=== PATIENT | female | born 1955 | race Caucasian/White ===

== ENCOUNTER 2019-06-21 13:56 | Inpatient (IN) | payer OTHER ==
[2019-06-21 14:31] LABS: #Basophils 0.1 thou/uL (0.0-0.2); #Eosinphils 0.2 thou/uL (0.0-0.7); #Lymphocytes 3.7 thou/uL (1.20-3.40); #Monocytes 1.3 thou/uL (0.11-0.59); #Neutrophils 6.5 thou/uL (1.40-6.50); %Basophils 0.7 % (0.0-1.0); %Eosinophils 1.4 % (0.0-10.0); %Lymphocytes 31.7 % (21.0-51.0); %Monocytes 10.9 % (0.0-10.0); %Neutrophils 55.3 % (42.0-75.0); Hemoglobin 14.5 g/dL (12.0-16.0); Mean Corpuscular HGB CONC 32.6 g/dL (32.0-36.0); Mean Corpuscular Hemoglobin 30.7 pg (27.0-31.0); Mean Corpuscular Volume 94.2 fL (78.0-98.0); Mean Platelet Volume 8.4 fL (7.4-10.4); Platelet Count 339 thou/uL (130-400); RBC Distribution Width 11.5 % (11.5-14.5); Red Blood Cell (RBC) Count 4.73 mill/uL (4.20-5.40); White Blood Cell (WBC) Count 11.7 thou/uL (4.8-10.8)
[2019-06-21] MEDS ORDERED: Iopamidol-370 76% 500 ML 1 ML ONE (14:47)
[2019-06-21 14:52] LABS: ALT (SGPT) 15 U/L (8-55); AST (SGOT) 22 U/L (5-34); Albumin 4.3 g/dL (3.4-4.8); Alkaline Phosphatase 55 U/L (40-110); Anion Gap 13 mmol/L (10-20); BUN (Urea Nitrogen) 14 mg/dL (9.8-20.1); Bilirubin, Total 0.4 mg/dL (0.2-1.2); CK (CPK) 116 U/L (29-168); Calc. Creatinine Clearance 0 mL/min (70-130); Calcium 9.6 mg/dL (7.8-10.44); Carbon Dioxide 24 mmol/L (23-31); Chloride 109 mmol/L (98-107); Estimated GFR-MDRD 48; Globulin 2.7 g/dL (2.4-3.5); Glucose 100 mg/dL (80-115); Potassium 4.2 mmol/L (3.5-5.1); Sodium 142 mmol/L (136-145)
[2019-06-21 15:15] LABS: CKMB 4.9 ng/mL (0-6.6)
--- NOTE | 2019-06-21 16:17 | CT ---
CT ANGIOGRAM THORAX WITH IV CONTRAST AND 3-D RECONSTRUCTIONS CLINICAL INDICATION: Dyspnea worse when ambulating. Symptoms have gotten worse. COMPARISON: None FINDINGS: Pulmonary arteries: Multiple filling defects are seen within upper lobe and bilateral lobe segmental and subsegmental pulmonary arteries with filling defects in the more distal right and left pulmonary arteries. More extensive filling defects are seen in right upper and right lower lobe pulmo nary arteries. Findings are consistent with bilateral pulmonary emboli. Aorta: Vascular calcifications are seen in the thoracic aorta with mild atherosclerotic plaque. No ao rtic dissection or aneurysmal dilatation is seen. Lungs: Small approximately 4 mm nodular density is seen adjacent to the minor fissure as well as a mo re subtle nodular density along the major fissure which may represent small intrapleural lymph nodes. Tiny 3 mm subpleural pulmonary nodule is seen at the right lung base. No consolidation or pleu ral effusion is seen bilaterally. Mild atelectasis is present in the lingula. Mediastinum: No enlarged lymph nodes are seen by CT size criteria. Vascular calcifications are seen i n the coronary arteries. Thyroid gland: Incompletely imaged on this exam, but where seen has a grossly normal CT appearance. Osseous structures: Degenerative changes are seen in the spine. Chest wall: No abnormality is visualized. Upper abdomen: Vascular calcifications and atherosclerotic plaque is seen in the proximal abdominal a karlos. The remainder of the limited visualized upper abdomen demonstrates a normal CT appearance for phase of imaging. IMPRESSION: 1. Extensive bilateral pulmonary emboli. 2. Above findings discussed with Dr. Aguilar in the emergency department on 06/21/2019 at 1612 hours.
--- NOTE | 2019-06-21 16:33 | PDOC.FPRHP ---
- History of Present Illness Chief Complaint: Shortness of breath History of Present Illness: Ms. Lanier is a 64yo white female who presents to the ED for increasing shortness of breath. It started acutely Tuesday, and progressively worsened. She decided to come in today before the weekend because the shortness of breath continued to worsen. Denies leg pain or swelling. 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 She recently traveled back from [place] on 05/29/19, her flight was about 9 hours. She has no history of blood clots or bleeding disorders, no family history of bleeding disorders. ED Course: Lovenox 120mg, NS 500mL - Allergies/Adverse Reactions Allergies Allergy/AdvReac Type Severity Reaction Status Date / Time diazepam [From Valium] Allergy swelling Verified 06/21/19 16:47 - Home Medications Medication Instructions Recorded Confirmed Type Aspirin [Ecotrin] 81 mg PO DAILY 06/21/19 06/21/19 History Biotin 5,000 mcg PO DAILY 06/21/19 06/21/19 History Cholecalciferol (Vitamin D3) 2,000 unit PO DAILY 06/21/19 06/21/19 History [Vitamin D] Estrogen,Con/M-Progest Acet 1 each PO DAILY 06/21/19 06/21/19 History [Prempro 0.3 mg-1.5 mg Tablet] Fenofibrate [Lipofen] 150 mg PO DAILY 06/21/19 06/21/19 History Ibuprofen [Motrin] 800 mg PO Q8HR PRN 06/21/19 06/21/19 History Lisinopril [Zestril] 10 mg PO DAILY 06/21/19 06/21/19 History Magnesium Oxide [Magnesium] 250 mg PO DAILY 06/21/19 06/21/19 History Niacin 500 mg PO DAILY 06/21/19 06/21/19 History Ranitidine HCl 150 mg PO DAILY 06/21/19 06/21/19 History Vitamin A Palmitate [Vitamin A] 1 capsule PO DAILY 06/21/19 06/21/19 History Cyanocobalamin (Vitamin B-12) 500 mcg PO DAILY 06/22/19 06/22/19 History [B-12] Potassium Acetate 06/22/19 History - History PMHx: HTN HLD Retinitis pigmentosa PSHx: L knee arthroscopy Tonsillectomy FHx: Dad: , NE @ 64 Mom: , liver toxicity 2/2 medication MGM: h/o blood clots/TIAs Social: 1.5ppd x 25 years, quit 12 years ago Denies illicit drug use Social alcohol use. - Review of Systems General: denies: fever/chills, weight/appetite/sleep changes, night sweats Eyes: denies: eye pain, vision changes ENT: denies: nasal congestion, rhinorrhea Respiratory: reports: shortness of breath. denies: cough, congestion Cardiovascular: denies: chest pain, palpitation, edema, paroxysmal nocturnal dyspnea, orthopnea Gastrointestinal: denies: nausea, vomiting, diarrhea, constipation, abdominal pain Genitourinary: denies: incontinence, dysuria Skin: denies: rashes, lesions Musculoskeletal: denies: pain, tenderness, stiffness Neurological: denies: numbness, syncope, seizure, weakness - Vital signs BP: 149/108, Pulse: 102, Resp: 20, Pain: 0, O2 sat: 97 on (Room Air), Time: 06/21 15:29 - Physical Exam Constitutional: NAD, awake, alert and oriented -Constitutional: obese HEENT: normocephalic and atraumatic, PERRLA, EOMI, conjunctiva clear, grossly normal vision, grossly normal hearing, MMM Neck: supple, FROM, trachea midline Heart: RRR, normal S1/S2, no murmurs/rubs/gallops, pulses present, no edema -Heart: Tachycardic Lungs: CTAB, no respiratory distress, good air movement, no rales/rhonchi, no wheezing -Lungs: Tachypneic Abdomen: soft, non-tender, bowel sounds present Musculoskeletal: normal structure, normal tone Neurological: no focal deficit, CN II-XII intact Skin: no rash/lesions, good turgor, capillary refill <2 seconds Heme/Lymphatic: no unusual bruising or bleeding, no purpura, no petechia Psychiatric: normal mood and affect, good judgment and insight, intact recent and remote memory FMR H&P: Results - Labs Result Diagrams: 06/22/19 04:08 06/22/19 04:08 Lab results: WBC 11.7 thou/uL (4.8-10.8) H 06/21/19 14:21 Hgb 14.5 g/dL (12.0-16.0) 06/21/19 14:21 Hct 44.6 % (36.0-47.0) 06/21/19 14:21 MCV 94.2 fL (78.0-98.0) 06/21/19 14:21 Plt Count 339 thou/uL (130-400) 06/21/19 14:21 Neutrophils % 55.3 % (42.0-75.0) 06/21/19 14:21 Sodium 142 mmol/L (136-145) 06/21/19 14:21 Potassium 4.2 mmol/L (3.5-5.1) 06/21/19 14:21 Chloride 109 mmol/L (98-107) H 06/21/19 14:21 Carbon Dioxide 24 mmol/L (23-31) 06/21/19 14:21 BUN 14 mg/dL (9.8-20.1) 06/21/19 14:21 Creatinine 1.14 mg/dL (0.6-1.1) H 06/21/19 14:21 Glucose 100 mg/dL (80-115) 06/21/19 14:21 Calcium 9.6 mg/dL (7.8-10.44) 06/21/19 14:21 Total Bilirubin 0.4 mg/dL (0.2-1.2) 06/21/19 14:21 AST 22 U/L (5-34) 06/21/19 14:21 ALT 15 U/L (8-55) 06/21/19 14:21 Alkaline Phosphatase 55 U/L (40-110) 06/21/19 14:21 Creatine Kinase 116 U/L (29-168) 06/21/19 14:21 CK-MB (CK-2) 4.9 ng/mL (0-6.6) 06/21/19 14:21 Serum Total Protein 7.0 g/dL (6.0-8.3) 06/21/19 14:21 Albumin 4.3 g/dL (3.4-4.8) 06/21/19 14:21 - Radiology Interpretation CT scan - chest Status: report reviewed by me (IMPRESSION: 1. Extensive bilateral pulmonary emboli.Multiple filling defects are seen within upper lobe and bilateral lobe segmental and subsegmental pulmonary arteries with filling defects in the more distal right and left pulmonary arteries. More extensive filling defects are seen in right upper and right lower lobe pulmo nary arteries. Findings are consistent with bilateral pulmonary emboli) FMR H&P: A/P - Problem List (1) Hypertension Current Visit: Yes Status: Acute Code(s): I10 - ESSENTIAL (PRIMARY) HYPERTENSION (2) Hyperlipidemia Current Visit: Yes Status: Acute Code(s): E78.5 - HYPERLIPIDEMIA, UNSPECIFIED (3) Bilateral pulmonary embolism Current Visit: Yes Status: Acute Code(s): I26.99 - OTHER PULMONARY EMBOLISM WITHOUT ACUTE COR PULMONALE - Plan Bilateral PE - Received 1 dose of therapeutic lovenox in the ED - Will continue therapeutic lovenox overnight, and discuss transition to/ d/c on Eliquis - Will admit to Tele and monitor VS closely. - Recommend d/c Prempro use. Will hold and discuss with patient tomorrow. HTN - Will continue home medications HLD - Will continue home medications OPAL vs CKD - no values to compare to. Will monitor and trend Disposition/LOS: Dispo: Stable, Inpatient. VTE: Th lovenox Code: DNR FMR H&P: Upper Level - Pertinent history Ms Lanier is a 64yo female with pmh of HLD, obesity, HTN presents with shortness of breath. SOB started Saturday 06/17. She recently flew back from [place] on a 9 hour flight. Denies chest pain, unilateral LE edema, pain or redness. Has been taking Premarin >10yrs. No immediate family with clotting disorder, her maternal grandmother had multiple blood clots. No personal hx of DVT/PE. - Plan Date/Time: 06/21/19 1631 PE: General: NAD CV: Tachycardic, no murmur Pulm: CTA b/l. Mild respiratory distress, appears to be uncomfortable and short of breath but able to speak in short sentences. Abd: Soft, nontender Extremities: No edema or redness A/P: Pulmonary Embolism - VSS, 97% on RA. CTA with extensive bilateral pulmonary embili. Given 1mg/kg Lovenox in ED. Likely due to recent immobilization on flight while on premarin. Will hold premarin. Admit to tele obs. HTN - BP elevated in ED 149/108. Continue home meds and monitor OPAL vs CKD - Continue to monitor with AM labs. May need to adjust NOAC dose when she transitions based on CrCl I, Rosy Carcamo, have evaluated this patient and agree with findings/plan as outlined by chemistry intern resident. Pertinent changes/additions are listed here. Addendum - Attending - Attending Attestation Date/Time: 06/22/19 8691 I personally evaluated the patient and discussed the management with Dr. Grace on day of admission. I agree with the History, Examination, Assessment and Plan documented above with any addition or exceptions noted below.
[2019-06-21] MEDS ORDERED: Enoxaparin Sodium 40 MG/0.4 ML SYRINGE ONE (17:09)
[2019-06-21] MEDS ORDERED: Enoxaparin Sodium 80 MG/0.8 ML SYRINGE ONE (17:09)
[2019-06-21] MEDS ORDERED: Enoxaparin Sodium 30 MG/0.3 ML SYRINGE ONE (17:10)
[2019-06-21] MEDS ORDERED: Acetaminophen 325 MG TAB PO PRN (17:10)
[2019-06-21 20:12] VITALS: BMI 47.5
[2019-06-21 20:54] LABS: Troponin I 0.076 ng/mL (< 0.028)
[2019-06-21] MEDS ORDERED: Enoxaparin Sodium 120 MG/0.8 ML SYRINGE SC SCH (21:00)
[2019-06-22 05:03] LABS: #Basophils 0.1 thou/uL (0.0-0.2); #Eosinphils 0.3 thou/uL (0.0-0.7); #Lymphocytes 4.1 thou/uL (1.20-3.40); #Monocytes 1.1 thou/uL (0.11-0.59); #Neutrophils 4.4 thou/uL (1.40-6.50); %Basophils 1.2 % (0.0-1.0); %Eosinophils 3.4 % (0.0-10.0); %Lymphocytes 40.7 % (21.0-51.0); %Monocytes 10.9 % (0.0-10.0); %Neutrophils 43.7 % (42.0-75.0); Hemoglobin 13.5 g/dL (12.0-16.0); Mean Corpuscular HGB CONC 31.9 g/dL (32.0-36.0); Mean Platelet Volume 8.8 fL (7.4-10.4); Platelet Count 328 thou/uL (130-400); RBC Distribution Width 11.4 % (11.5-14.5); Red Blood Cell (RBC) Count 4.52 mill/uL (4.20-5.40); White Blood Cell (WBC) Count 10.1 thou/uL (4.8-10.8)
[2019-06-22 05:12] VITALS: TEMP 97.9
[2019-06-22 05:19] LABS: Anion Gap 13 mmol/L (10-20); BUN (Urea Nitrogen) 14 mg/dL (9.8-20.1); Calc. Creatinine Clearance 111 mL/min (70-130); Calcium 9.3 mg/dL (7.8-10.44); Carbon Dioxide 21 mmol/L (23-31); Chloride 110 mmol/L (98-107); Estimated GFR-MDRD 60; Glucose 103 mg/dL (80-115); Potassium 3.9 mmol/L (3.5-5.1); Sodium 140 mmol/L (136-145)
--- NOTE | 2019-06-22 06:19 | PDOC.FM ---
- Subjective Subjective: Feeling better this morning, takes less time for SOB to recover once she stops walking around. Denies chest pain, leg swelling. - Objective MAR Reviewed: Yes Vital Signs & Weight: Vital Signs (12 hours) Temp Pulse Resp BP BP Pulse Ox 06/22/19 04:54 97.9 F 100 18 126/76 97 06/22/19 00:25 115 H 18 117/59 L 93 L 06/21/19 19:22 98.1 F 121 H 21 H 140/89 93 L Weight Weight 114.26 kg Result Diagrams: 06/22/19 04:08 06/22/19 04:08 Phys Exam - Physical Examination Constitutional: NAD HEENT: moist MMs Neck: supple Respiratory: no wheezing, clear to auscultation bilateral Cardiovascular: RRR, no significant murmur Musculoskeletal: no edema Neurological: moves all 4 limbs Psychiatric: normal affect, A&O x 3 Skin: normal turgor Dx/Plan (1) Hypertension Code(s): I10 - ESSENTIAL (PRIMARY) HYPERTENSION Status: Acute (2) Hyperlipidemia Code(s): E78.5 - HYPERLIPIDEMIA, UNSPECIFIED Status: Acute (3) Bilateral pulmonary embolism Code(s): I26.99 - OTHER PULMONARY EMBOLISM WITHOUT ACUTE COR PULMONALE Status : Acute - Plan Plan: Pulmonary Embolism - Likely due to recent immobilization on flight while on premarin - VSS, CTA with extensive bilateral pulmonary emboli. - Transition from Therapeutic Lovenox to DOAC - D/c Premarin - Echo ordered Sinus Tachycardia - 2/2 PE NSTEMI Type 2 - likely 2/2 Right heart strain from PE HTN - Continue home meds OPAL, resolved Addendum - Attending - Attending Attestation Date/Time: 06/22/19 1014 I personally evaluated the patient and discussed the management with Dr. Carcamo. I agree with the History, Examination, Assessment and Plan documented above with any addition or exceptions noted below. Patient overall feeling well, gets winded easily but O2 sats on room air remain normal. Echo pending to evaluate for RV dysfunction or strain. She is now on NOAC for her PE. Dopplers pending. Suspect this was provoked due to prolonged car ride and will need minimum 3 months therapy. Reassess vitals this afternoon and symptoms and possible discharge if doing well. PESI scoring shows low risk for adverse events next 30 days.
--- NOTE | 2019-06-22 08:29 | ULT ---
EXAM: Bilateral lower extremity venous Doppler HISTORY: Extensive bilateral pulmonary emboli. FINDINGS: Grayscale, color-flow, Doppler evaluation, spectral analysis of the bilateral lower extremities venou s structures is performed with 2-D imaging. The bilateral common femoral, superficial femoral, popliteal, posterior tibial, proximal greater saphenous and profunda femoral veins are imaged. There is normal luminal compressibility, flow, and augmentation in the visualized deep venous structu res of the bilateral lower extremities. IMPRESSION: No evidence of a deep vein thrombosis in the visualized deep venous structures bilateral lower extrem ities.
[2019-06-22] MEDS ORDERED: Enoxaparin Sodium 120 MG/0.8 ML SYRINGE SC SCH (09:00)
[2019-06-22] MEDS ORDERED: Apixaban 5 MG TAB PO SCH (09:00)
[2019-06-22] MEDS ORDERED: Lisinopril 10 MG TAB PO SCH (09:00)
[2019-06-22 11:51] VITALS: BP 159/89
[2019-06-22 12:19] LABS: Hemoglobin 13.2 g/dL (12.0-16.0); Platelet Count 333 thou/uL (130-400)
--- NOTE | 2019-06-24 14:22 | DIS ---
DATE OF ADMISSION: 06/21/2019 DATE OF DISCHARGE: 06/22/2019 RESIDENT: Rosy Carcamo MD, PGY-2 ADMITTING ATTENDING: Maximus Dan MD DISCHARGE ATTENDING: Darrell Anderson MD CONSULTS: None. PROCEDURES: 1. Chest thorax CTA on 06/21/2019. Extensive bilateral pulmonary emboli. 2. Echocardiogram on 06/22/2019. EF 55% to 60%. Moderately enlarged right ventricle cavity. Left atrium is mildly dilated. Mild mitral regurg. Severe tricuspid regurg. 3. Venogram on 06/22/2019. No evidence of deep vein thrombosis in the visualized deep venous structures bilateral lower extremities. PRIMARY DIAGNOSIS: Pulmonary embolism. SECONDARY DIAGNOSES: 1. Sinus tachycardia. 2. Non-ST segment elevation myocardial infarction type 2. 3. Hypertension. 4. Acute kidney injury, resolved. DISCHARGE MEDICATIONS: 1. Eliquis 10 mg p.o. b.i.d. x7 days, followed by 5 mg b.i.d. thereafter. 2. Aspirin 81 mg daily. 3. Biotin 5000 mcg daily. 4. Vitamin D3 of 2000 units p.o. daily. 5. Vitamin B12 of 500 mcg daily. 6. Lipofen 150 mg daily. 7. Ibuprofen 800 mg q.8 hours p.r.n. 8. Lisinopril 10 mg p.o. daily. 9. Magnesium 250 mg p.o. daily. 10. Niacin 500 mg p.o. daily. 11. Ranitidine 150 mg p.o. daily. 12. Vitamin A 10,000 units daily. HISTORY OF PRESENT ILLNESS/HOSPITAL COURSE: Ms. Lanier is a 64-year-old female, presents to the emergency with shortness of breath and saturating 97% on room air; however, was very winded. CTA was performed showing extensive bilateral pulmonary emboli. This was likely triggered by her long 9-hour flight in combination with estrogen replacement Premarin. No history of personal bleeding or clotting disorder. She had no symptoms of DVT. She was given therapeutic Lovenox, this was transitioned to the next date Eliquis. Vital signs were stable throughout the course of hospitalization. Bilateral lower extremity ultrasound was performed with no evidence of clot. EKG showed sinus tachycardia. Echocardiogram showed right heart strain. In regard to her chronic medical conditions of hypertension and hyperlipidemia, she was continued on home medications and these were stable throughout the course of hospitalization. She was noted to have an OPAL, initial creatinine 1.14 and 1.00 at discharge. Troponins were elevated at 0.094, 0.09, and 0.076. This is likely due to the NSTEMI type 2 to the heart strain. BNP was elevated at 451. She showed no evidence of volume overload. D-dimer is elevated at 2.62. DISPOSITION: Stable. DISCHARGE INSTRUCTIONS: 1. Location: Home. 2. Diet: Regular. 3. Activity: No restrictions. 4. Followup: Keep follow up with Dr. Jordin Valdes at [facility] on 06/26/2019. Job ID: [id number] [facility]
== END 2019-06-22 14:47 | disposition home or self-care (01) | DRG 175 ==
LOC: ERS 13:56 → 2NO 16:38
PROVIDERS: ADMIT Family Medicine; ATTEND Family Medicine
DX: I26.99 Other pulmonary embolism without acute cor pulmonale (principal); I21.A1 Myocardial infarction type 2; N17.9 Acute kidney failure, unspecified; Z68.42 Body mass index [BMI] 45.0-49.9, adult; Z66 Do not resuscitate; E66.9 Obesity, unspecified; E78.5 Hyperlipidemia, unspecified; I51.89 Other ill-defined heart diseases; I10 Essential (primary) hypertension; Z87.891 Personal history of nicotine dependence; Z82.49 Family history of ischemic heart disease and other diseases of the circulatory system; Z84.89 Family history of other specified conditions
CPT/HCPCS: 36415; 71275; 80048; 80053; 82550; 82553; 83880; 84484; 85025; 85379; 93005; 93306; 93970; 96360; 96372; J1650; Q9967

== ENCOUNTER 2019-10-29 09:54 | Outpatient (CLI) | payer OTHER ==
--- NOTE | 2019-10-29 11:31 | MMO ---
Bilateral MAMMO Bilat Screen [facility]. CLINICAL HISTORY: Patient is 64 years old and is seen for screening. The patient has no family history of breast cancer. The patient has no personal history of cancer. VIEWS: The views performed were: bilateral craniocaudal with tomosynthesis and bilateral mediolateral oblique with tomosynthesis. This study has been interpreted with the assistance of computer-aided detection. MAMMOGRAM FINDINGS: There are scattered fibroglandular densities. There are benign appearing densities seen in both breasts. There are no suspicious masses, suspicious calcifications, or new areas of architectural distortion. IMPRESSION: THERE IS NO MAMMOGRAPHIC EVIDENCE OF MALIGNANCY. A ROUTINE FOLLOW-UP MAMMOGRAM IN 1 YEAR IS RECOMMENDED. THE RESULTS OF THIS EXAM WERE SENT TO THE PATIENT. ACR BI-RADS Category 2 - Benign finding MAMMOGRAPHY NOTE: 1. A negative mammogram report should not delay a biopsy if a dominant of clinically suspicious mass is present. 2. Approximately 10% to 15% of breast cancers are not detected by mammography. 3. Adenosis and dense breasts may obscure an underlying neoplasm. Reported by: FIDEL BRINK MD Electonically Signed: [id number]
--- NOTE | 2019-10-29 15:56 | BD ---
DEXA BONE MINERAL DENSITOMETRY EXAM, DENSITY SCAN: DATE: 10/29/2019. COMPARISON: None. HISTORY: Postmenopausal female undergoing screening for osteoporosis. FINDINGS: Lumbar Spine: BMD (g/cm2) L1 1.062 T-Score: 0.7 L2 1.156 T-Score: 1.2 L3 1.201 T-Score: 1.1 L4 1.009 T-Score: -0.5 L1-L4 1.106 T-Score: 0.5 Femoral Neck: 0.774 T-Score: -0.7 Total Femur: 1.009 T-Score: 0.5 FRAX-WHO fracture risk assessment tool is not reported as all T-scores are at or above -1.0 Impression: Normal bone mineral density exam. POS: GEORGE
== END 2019-10-29 09:55 | disposition home or self-care (01) ==
LOC: BICMAMMO 09:54
PROVIDERS: ATTEND Specialist
DX: Z12.31 Encounter for screening mammogram for malignant neoplasm of breast (principal); M81.0 Age-related osteoporosis without current pathological fracture
CPT/HCPCS: 36415; 77063; 77067; 77080; 80053; 80061; 82306; 83520; 85025; 85652; 86038; 86225

== ENCOUNTER 2021-10-05 09:02 | Outpatient (CLI) | payer OTHER | END 2021-10-05 09:03 | disposition home or self-care (01) | LOC: BICULT 09:02 | PROVIDERS: ATTEND Specialist | DX: Z12.31 Encounter for screening mammogram for malignant neoplasm of breast (principal); Z13.820 Encounter for screening for osteoporosis; Z82.49 Family history of ischemic heart disease and other diseases of the circulatory system; I71.4 Abdominal aortic aneurysm, without rupture | CPT/HCPCS: 76775; 77063; 77067; 77080 ==